=== PATIENT | female | born 1960 | race Caucasian/White ===

== ENCOUNTER 2018-04-03 08:44 | Emergency (ER) | payer BC ==
[2018-04-03 08:58] VITALS: BP 134/88; PULSE 63; RESP 18; TEMP 97.6
[2018-04-03] MEDS ORDERED: IBUPROFEN 600 MG TAB PO STA (08:59)
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
--- NOTE | 2018-04-03 09:42 | XR ---
EXAMINATION TYPE: XR chest 2V DATE OF EXAM: 04/03/2018 COMPARISON: NONE TECHNIQUE: PA and lateral views submitted. HISTORY: Pain FINDINGS: The lungs are clear and there is no pneumothorax, pleural effusion, or focal pneumonia. Hypertrophi c and degenerative change of the vertebral column IMPRESSION: 1. No acute process.
--- NOTE | 2018-04-03 09:43 | XR ---
EXAMINATION TYPE: XR shoulder complete LT DATE OF EXAM: 04/03/2018 COMPARISON: NONE HISTORY: Pain TECHNIQUE: Three views are submitted. FINDINGS: The osseous structures are intact. There is no acute fracture or dislocation. The AC joint is maint ained. IMPRESSION: 1. No acute process.
== END 2018-04-03 10:02 | disposition home or self-care (01) ==
LOC: EC 08:44 → SUPCPDRO 08:44 → EC 10:02
DX: M25.512 Pain in left shoulder (principal); M62.830 Muscle spasm of back; S40.212A Abrasion of left shoulder, initial encounter; K21.9 Gastro-esophageal reflux disease without esophagitis; Z79.899 Other long term (current) drug therapy; W00.0XXA Fall on same level due to ice and snow, initial encounter; Y92.009 Unspecified place in unspecified non-institutional (private) residence as the place of occurrence of the external cause
CPT/HCPCS: 71046; 99283